=== PATIENT | male | born 1960 | race Caucasian/White ===

== ENCOUNTER 2019-04-04 11:50 | Observation (INO) ==
[2019-04-04] MEDS ORDERED: PROTONIX IV ONE (12:17)
[2019-04-04] MEDS ORDERED: PEPCID IV ONE (12:17)
[2019-04-04] MEDS ORDERED: SODIUM CHLORIDE 0.9% INJ ONE ×2 (12:17)
[2019-04-04] MEDS ORDERED: ZOFRAN IV ONE (12:17)
[2019-04-04] MEDS ORDERED: NS 1,000 ML IV ONE (12:17)
[2019-04-04 12:50] LABS: BASO# 0.04 X1000 (0.0-0.2); BASO% 0.3 % (0.0-0.8); EOS# 0.07 X1000 (0.0-0.7); EOS% 0.5 % (0.0-10.0); HEMATOCRIT 43.9 % (42.0-52.0); IMM GRAN# 0.05 X1000 (0.0-0.04); IMM GRAN% 0.3 % (0.0-0.5); LYMPH# 1.74 X1000 (1.2-3.4); LYMPH% 11.6 % (20.5-51.1); MCH 23.1 PG (27-31); MCHC 31.9 g/dL (33-37); MCV 72.6 FL (81-99); MONO# 1.06 X1000 (0.11-0.59); MPV 9.6 FL (7.4-10.4); NEUT# 12.08 X1000 (1.4-6.5); NEUT% 80.3 % (42.2-75.2); PLT 394 X1000 (130-400); RBC 6.05 XMIL (4.7-6.1); RDW 14.9 % (11.5-14.5); WBC 15.04 X1000 (4.8-10.8)
[2019-04-04 13:02] LABS: AGAP 13; ALBUMIN 4.2 g/dL (3.5-5.0); ALKALINE PHOSPHATASE 131 U/L (32-122); BUN 28 mg/dL (8-22); CALCIUM 9.3 mg/dL (8.8-10.2); CHLORIDE 91 mmol/L (98-107); COSMO 279; CREATININE 1.1 mg/dL (0.7-1.2); ESTIMATED GFR > 60; GLUCOSE 168 mg/dL (70-104); GOT 23 U/L (10-34); GPT 14 U/L (10-44); LIPASE 23 U/L (13-60); POTASSIUM 3.5 mmol/L (3.5-5.1); SODIUM 135 mmol/L (136-145); TCO2 32 mmol/L (25-35); TOTAL PROTEIN 7.7 g/dL (6.3-8.3)
[2019-04-04] MEDS ORDERED: ZOFRAN IV PRN ×2 (13:57)
[2019-04-04] MEDS ORDERED: TYLENOL PO PRN (13:57)
[2019-04-04] MEDS ORDERED: SODIUM CHLORIDE 0.9% INJ PRN (13:58)
--- NOTE | 2019-04-04 14:16 | PROVIDER DOCUMENTATION ---
This chart was entered by April Schmidt Scribe, acting as scribe for Joel Gold MD. HPI-Abdominal Pain/GI Problem - General Chief Complaint: Abdominal Pain Stated Complaint: ABD PAIN / VOMITING Time Seen by Provider: 04/04/19 11:52 Source: patient Allergies/Adverse Reactions: Patient Allergies Allergy/AdvReac Type Severity Reaction Status Date / Time No Known Allergies Allergy Verified 09/01/13 11:48 Home Medications: Home Medication List Medication Instructions Recorded Confirmed Last Taken Type Metoprolol [Lopressor] 50 mg PO DAILY 04/04/19 04/04/19 Unknown History Pantoprazole Sodium [Protonix] 20 mg PO DAILY 04/04/19 04/04/19 Unknown History - History of Present Illness-ABD Nature of Presenting Problems: Pt is a 58 yom who presents to the ED w/ a cc of abd pain(epigastric). Pt states that his symptoms began night. Pt reports that he vomited 6x total. Pt reports nausea, diarrhea, and dark stool. Pt also reports vomiting blood. Pt states that he vomited about "half of a small sized garbage can." Pt reports that he is a smoker. Pt reports high BP and heartburn. Pt denies any hx of ulcers. Abdominal Pain Onset Location: reports: epigastric Quality of Pain: reports: aching Severity in ED: reports: moderate Onset/Duration: reports: other ( night) Timing: reports: still present Activities at Onset: reports: none Exposure to sick contacts?: No Modifying Factors: improves with: nothing Associated Symptoms: reports: diarrhea, nausea, vomiting Last BM: 24 hours ago Dark Stools Present?: reports: tarry, other (darker than usual) Rectal Bleeding: reports: none # of Vomiting Episodes: 8 Emesis Description: reports: red blood Bruising or Bleeding Gums?: No Similar Symptoms Previously?: No Recently seen or treated by another doctor?: No Review of Systems - Adult - REVIEW OF SYSTEMS - ADULT Constitutional: reports: see HPI Eyes: reports: no symptoms reported Ears, Nose, Mouth & Throat: reports: no symptoms reported Cardiovascular: reports: no symptoms reported Respiratory: reports: no symptoms reported Gastrointestinal: reports: see HPI, abdominal pain (epigastric), diarrhea, frequent heartburn, nausea, vomiting Genitourinary: reports: no symptoms reported Musculoskeletal: reports: no symptoms reported Integumentary: reports: no symptoms reported Neurological: reports: no symptoms reported Psychiatric: reports: no symptoms reported Endocrine: reports: no symptoms reported Hematologic/Lymphatic: reports: no symptoms reported Allergic/Immunologic: reports: no symptoms reported All Other Systems: Reviewed and Negative Past History - Adult - PAST MEDICAL HISTORY-ADULT Review of Records: reports: Nursing Assessment Review, Medications Reviewed, Social history reviewed & non-contributory. Major Childhood Illnesses: reports: denies history Cardiovascular: reports: denies history Respiratory: reports: denies history Gastrointestinal: reports: GERD Obstetrical/Gynecological: reports: denies history Genitourinary: reports: denies history Musculoskeletal: reports: denies history Neurological: reports: denies history Endocrine/Immune: reports: denies history Other Conditions: reports: denies history - PRIOR SURGERIES/PROCEDURES Surgical/Procedure History: reports: reviewed, not pertinent, hernia repair - IMMUNIZATION STATUS Childhood Immunizations: See Nurse Assessment Flu Vaccine: See Nurse Assessment - FAMILY HISTORY Family History: reviewed, not pertinent - SOCIAL HISTORY Smoking: cigarettes, greater than 1 pack/day Provider spent 3-5 mins advising pt. on dangers of tobacco.: Discussed manners to quit use, and f/u contacts for add'l counseling. Substance Use: denies Living Situation: family Physical Exam-General - PHYSICAL EXAM-ADULT Initial Vital Signs Reviewed: Yes - CONSTITUTIONAL General Appearance: alert, no apparent distress - EYES Eyes: PERRL/EOMI, pink conjunctivae - HEAD, EARS, NOSE, MOUTH & THROAT HENMT: normocephalic/atraumatic, moist mucous membranes - NECK Neck: non-tender, full range of motion, supple, normal inspection - RESPIRATORY Respiratory: chest non-tender, lungs clear, normal breath sounds - CARDIOVASCULAR Cardiovascular: normal peripheral pulses, regular rate, rhythm - GASTROINTESTINAL (ABDOMEN) Abdominal Exam: normal bowel sounds, soft, tenderness (to epigastric, rest of the abd is non tender). negative: non tender - LYMPHATIC Lymphatic: no adenopathy - MUSCULOSKELETAL Back Exam: normal inspection, no CVA tenderness, no vertebral tenderness Extremity: normal range of motion, non-tender, normal inspection - SKIN Integumentary: normal color, normal turgor, warm/dry - NEUROLOGIC Neurologic: grossly normal - PSYCHIATRIC Psych/Mental Status: normal mood/affect, normal thought content, normal thought process, oriented x 3 Progress - PLAN OF CARE/RESULTS Progress/Plan/Lab Results: Vital Signs - 8 hr 04/04/19 11:56 Temperature 98 F Pulse Rate 89 Respiratory Rate 18 Blood Pressure 116/78 O2 Sat by Pulse Oximetry 98 Orders Category Date Time Status AMYLASE [CHEM] Stat Lab 04/04/19 12:02 Ordered CBC WITH DIFF [HEME] Stat Lab 04/04/19 12:02 Ordered COMPREHENSIVE METABOLIC PANEL [CHEM] Stat Lab 04/04/19 12:11 Ordered LIPASE [CHEM] Stat Lab 04/04/19 12:11 Ordered TYPE & SCREEN [BBK] Stat Lab 04/04/19 12:24 Ordered URINALYSIS W/POSS RFLX CULT [URINALYSIS] Stat Lab 04/04/19 12:02 Uncollected 0.9% Sodium Chloride Inj [Ns] 1,000 ml Med 04/04/19 12:17 Active IV 999 mls/hr Famotidine [Pepcid] Med 04/04/19 12:17 Discontinued 20 mg IV NOW ONE Ondansetron [Zofran] Med 04/04/19 12:17 Discontinued 4 mg IV NOW ONE Pantoprazole [Protonix] Med 04/04/19 12:17 Discontinued 40 mg IV NOW ONE Sodium Chloride 0.9% Med 04/04/19 12:17 Discontinued 10 ml INJ NOW ONE Sodium Chloride 0.9% Med 04/04/19 12:17 Discontinued 5 - 10 ml INJ NOW ONE Result Diagrams: 04/04/19 12:27 04/04/19 12:27 - REASSESSMENT Reassessment #1 Time Reassessed: 14:12 Status: improving (NAUSEA RESOLVED, NO VOMITING HERE IN ED. HOLDS TO HISTORY OF LARGE AMOUNT BLOOD [id number] TODAY AND BLACK STOOLS. EPIGASTRIC PAIN ONLY SL BETTER, ADDING GI COCKTAIL. REMAINS HEMODYNAMICALLY STABLE.) - CONSULTS/PCP/HOSPITALIST Notification #1 *Consult/PCP/Hospitalist*: DR CESPEDES Time Discussed: 14:00 Consult Disposition: Admit Departure - Departure Date of Disposition Decision: 04/04/19 Time of Disposition Decision: 14:15 DIAGNOSIS: PUD (peptic ulcer disease), Upper gastrointestinal bleed Abdominal pain Qualifiers: Abdominal location: epigastric Qualified Code(s): R10.13 - Epigastric pain Disposition: ADMITTED INPATIENT 09 Certified Medical Emergency: Emergent Condition: Stable Referrals and Follow-Ups: None,PCP [Primary Care Provider] - - Critical Care Note This patient required my direct & personal management of CC.: No Attestation - Physician/ JADA Attestation Patient care was provided by Advanced Practice Provider:: No The physician spent face to face time with patient:: Yes Advanced Practice Provider documentation review:: Supervising physician onsite and consulted in the evaluation and care of this patient. The physician did have a face to face encounter with the patient. This chart was documented by the indicated scribe, (April Schmidt Scribe) and accurately reflects the services I performed and decisions made by me, Joel Gold MD, as attested by the provider's signature.
[2019-04-04 14:19] LABS: URINE SOURCE CLEAN CATCH
[2019-04-04 14:34] LABS: BILIRUBIN URINE NEGATIVE (NEGATIVE); BLOOD URINE NEGATIVE (NEGATIVE); COLOR YELLOW; GLUCOSE URINE NEGATIVE (NEGATIVE); KETONE URINE NEGATIVE (NEGATIVE); LEUKOCYTES URINE NEGATIVE (NEGATIVE); NITRITE URINE NEGATIVE (NEGATIVE); PROTEIN URINE 30 mg/dL (NEGATIVE); SP GRAVITY URINE 1.031; TURBIDITY URINE CLEAR (CLEAR); UROBILINOGEN URINE NORMAL (NORMAL)
[2019-04-04 14:35] LABS: UR EPITHELIAL CELLS <10 /HPF (<10); URINE BACTERIA NEGATIVE /HPF; URINE RBC <10 /HPF (<10); URINE WBC <10 /HPF (<10)
--- NOTE | 2019-04-04 14:41 | HISTORY AND PHYSICAL ---
CHIEF COMPLAINT: Nausea, vomiting, abdominal pain. HISTORY OF PRESENT ILLNESS: Patient is a 58-year-old male who notes he has been having epigastric abdominal pain. States it happened a couple of weeks ago but he did not come to the hospital or to the doctor's office. Notes that it is worse today with abdominal cramping, pain, and bloating. States that he has seen some black stool. He also notes that he has vomited occasionally and noted some stool in it as well. Denies alcohol use. Denies any previous stomach workup or stomach pains prior to 3 or 4 weeks ago. ALLERGIES: No known drug allergies. MEDICATIONS: Lopressor, Protonix. REVIEW OF SYSTEMS: As noted above. Denies any fevers, chills, cough, congestion. Denies any dysuria, frequency, urgency, hesitancy, polyuria, or polydipsia. Denies any hemoptysis or hematuria. Does note the hematemesis earlier this morning. Denies chest pain or palpitations. Denies fevers or chills. Denies headaches or blurred vision. Denies focalized weakness. Denies weight loss or skin rashes. PAST MEDICAL HISTORY: For occasional GERD and hypertension. SURGICAL HISTORY: He has had a hernia repair in the past. FAMILY HISTORY: Noncontributory. SOCIAL HISTORY: Patient does note that he smokes approximately a pack a day. Denies any illicit substance use. Denies any alcohol use. PHYSICAL EXAMINATION: VITAL SIGNS: Temperature 98, pulse 89, respiratory rate 18, BP 116/78. GENERAL: Patient is awake, currently in no respiratory distress. HEENT: Normocephalic. NECK: Supple. CARDIOVASCULAR: Regular rate. CHEST: Clear. ABDOMEN: Soft. EXTREMITIES: Moves all extremities. NEUROLOGIC: No focal changes. ASSESSMENT: 1. Epigastric pain. 2. Melena per history. 3. Acute upper gastrointestinal bleed per history. PLAN: We are going to admit patient to the hospital. Discussed with him the importance of stopping smoking. We will place him on Protonix twice daily. Keep him NPO. Follow his hemoglobin and hematocrit, which currently appear stable at 14. Further orders as needed. cc: Darren Hua MD
--- NOTE | 2019-04-04 14:50 | Diag Imaging Result Doc PS360 ---
EXAM: CT ABD/PELVIS W/IV CONT ONLY 04/04/2019 HISTORY: EPIGASTRIC PAIN TECHNIQUE: This exam was performed using automated exposure control, adjustment of mA or kV according to patient size, and/or use of iterative reconstruction technique. COMMENT: There are no previous studies. There is severe mucosal thickening in the distal esophagus. There is a hiatal hernia. There is no evidence of acute disease in the visualized portion of the chest otherwise. There is a fair amount of fluid in the stomach. The gallbladder is unremarkable. The liver is within normal limits. There are granulomata in the spleen. The adrenal glands are not enlarged. The pancreas is unremarkable. The kidneys are within normal limits. The small bowel is not distended. The aorta is not distended but is partially calcified. The appendix is normal in appearance. Pelvis: There is no evidence of free fluid. The urinary bladder is not distended and is somewhat thickened in appearance. There is spondylosis in the lumbar spine. There is no evidence of acute bony disease. IMPRESSION: Esophagitis. Hiatal hernia with probable reflux. Electronically signed by Taras San 04/04/2019 2:47 PM
[2019-04-04] MEDS: NS 1,000 ML IV SCH (15:19)
[2019-04-04] MEDS: PROTONIX IV SCH (15:20)
[2019-04-04] MEDS ORDERED: PNEUMOVAX 23 IM ONE (20:00)
[2019-04-04] MEDS ORDERED: FLU VACCINE IM ONE (20:00)
[2019-04-05] MEDS: PROTONIX IV SCH (01:11)
[2019-04-05] MEDS: NS 1,000 ML IV SCH (03:25)
[2019-04-05 05:58] LABS: HEMATOCRIT 36.4 % (42.0-52.0); MCH 22.4 PG (27-31); MCHC 30.2 g/dL (33-37); MCV 74.3 FL (81-99); MPV 9.4 FL (7.4-10.4); RBC 4.9 XMIL (4.7-6.1); RDW 14.7 % (11.5-14.5); WBC 9.71 X1000 (4.8-10.8)
[2019-04-05 05:59] VITALS: BP 109/60
[2019-04-05 06:02] LABS: AGAP 12; ALBUMIN 3.3 g/dL (3.5-5.0); ALKALINE PHOSPHATASE 115 U/L (32-122); BUN 20 mg/dL (8-22); CHLORIDE 102 mmol/L (98-107); COSMO 281; CREATININE 0.9 mg/dL (0.7-1.2); ESTIMATED GFR > 60; GLUCOSE 110 mg/dL (70-104); GOT 17 U/L (10-34); GPT 9 U/L (10-44); MAGNESIUM 1.9 mg/dL (1.5-2.7); POTASSIUM 3.6 mmol/L (3.5-5.1); SODIUM 139 mmol/L (136-145); TCO2 26 mmol/L (25-35); TOTAL PROTEIN 6.1 g/dL (6.3-8.3)
[2019-04-05] MEDS ORDERED: LOPRESSOR PO SCH (09:00)
[2019-04-05] MEDS ORDERED: PROTONIX PO SCH (09:00)
--- NOTE | 2019-04-06 18:14 | DISCHARGE SUMMARY ---
ADMISSION DATE: 04/04/2019 DISCHARGE DATE: 04/05/2019 ADMISSION DIAGNOSES: 1. Epigastric pain. 2. Melena per history. 3. Acute upper gastrointestinal bleed per his history, likely this is just gastritis. DISCHARGE DIAGNOSES: 1. Epigastric pain. 2. Melena per history. 3. Acute upper gastrointestinal bleed per his history, likely this is just gastritis. 4. Esophagitis with hiatal hernia and likely with reflux. CONSULTATIONS: None. SURGERIES OR PROCEDURES: None. HOSPITAL COURSE: Mr. Mark Gordon is a 58-year-old male presented with epigastric abdominal pain. Apparently happened a couple weeks ago, but did not come to the hospital or doctor's office. It had resumed hurting yesterday with some abdominal cramping, pain, and bloating, saw some black stools. Had some vomiting and stool in the emesis. He was admitted to the hospital, educated on the importance of stopping smoking. He was placed on twice daily Protonix. He was NPO. Monitored his hemoglobin. It was stable at 14, dropped down to 11. White count normalized, but he got IV fluids. He was given a GI soft diet for lunch and was discharged home. DISCHARGE VITAL SIGNS: Temperature 98.0 degrees, heart rate 66, respiratory rate 16, blood pressure 109/60, O2 saturation 91% on room air. DISCHARGE LAB DATA: White blood cells 9,000, hemoglobin 11, hematocrit 36, platelet count 304,000. Sodium 139, potassium 3.6, BUN 20, creatinine 0.9, glucose 110, calcium 8.0, magnesium 1.9, bilirubin 0.50, AST 17, ALT 9, albumin 3.3. IMAGING: Abdominal and pelvic CT: Esophagitis, hiatal hernia with probable reflux. DISCHARGE DIET: Advance as tolerated. DISCHARGE ACTIVITY: As tolerated. DISCHARGE INSTRUCTIONS: If your condition changes contact a physician and/or return to the emergency department. Changes may include, but are not limited to, shortness of breath, increased fatigue, excessive bleeding, unexplained weight loss or gain, unmanageable pain, signs or symptoms of infection. PHYSICIAN FOLLOW UP: None. DISCHARGE MEDICATIONS: 1. Metoprolol 50 mg p.o. daily. 2. Protonix 40 mg p.o. daily. 3. Tylenol 650 mg p.o. every 6 hours p.r.n. DISCHARGE DISPOSITION: Home. Dictated by RADHA Strong for Darren Hua MD cc: RADHA Strong MD
--- NOTE | 2019-04-06 22:00 | DISCHARGE SUMMARY ---
ADMISSION DATE: 04/04/2019 DISCHARGE DATE: 04/05/2019 ADMISSION DIAGNOSIS: Epigastric abdominal pain, likely peptic ulcer. DISCHARGE DIAGNOSES: 1. Epigastric pain, resolved. 2. Leukocytosis, resolved. 3. Anemia of chronic disease, stable. 4. Melena per history. 5. Upper gastrointestinal bleed per history. CONSULTATIONS: None. PROCEDURES: None. BRIEF HOSPITAL COURSE: The patient is a 58-year-old male who presented to the hospital with cough, congestion and melena. The patient was in significant pain in the ER in the epigastric region. Thankfully, this seems to have improved. On discharge he is awake, alert. He is in no distress. He has tolerated a full diet. He can be discharged home. Discussed with him that he needs to follow up outpatient with treatment facility of choice, as well as continue smoke exposure avoidance. TIME SPENT: Greater than 30 minutes. cc: Darren Hua MD
== END 2019-04-05 12:51 | disposition home or self-care (01) ==
LOC: P.ED 11:50 → P.MEDSURG 11:50
PROVIDERS: ATTEND Family Medicine